=== PATIENT | male | born 1985 | race Caucasian/White ===

== ENCOUNTER → 2023-10-21 | Outpatient (CLI) | payer OTHER, SELFPAY ==
--- NOTE | 2023-10-21 11:37 | NEURO_ITS ---
NCS and/or EMG Patient Report Ordering Doctor: Wu Tang DATE OF SERVICE: 10/21/23 Clinical Summary: This is a 38 year old male presenting with symptoms of numbness and tingling in the medial region of the hand along with pain that radiates between the hand and elbow. This EMG/NCS was performed to evaluate for right ulnar mononeuropathy. Nerve Conduction Studies Summary: The right ulnar-D5 SNAP distal latency was prolonged with reduced amplitude. The right ulnar motor conduction velocity dropped greater than 10 m/s across the elbow. Needle Examination Summary: Needle examination demonstrated a higher proportion of motor unit action po tentials with reduced recruitment, increased amplitude, increased duration, and polyphasia in the right flexor carpi ulnaris muscle. Impression: There is electrodiagnostic evidence of the following - 1) Severe, right ulnar mononeuropathy at the elbow, with secondary motor fiber axonal loss There is no electrodiagnostic evidence of right carpal tunnel syndrome or right cervical radiculopathy. Multi Select Codes Neurology Neurology Interp Codes: 60654-41 Musc test done w/n test comp (interp) (1) and 70915-89 Nrv cndj test 7-8 studies (interp)
== END | disposition home or self-care (01) ==
PROVIDERS: Referring Provider Orthopaedic Surgery; Visit Provider Orthopaedic Surgery
DX: S63.511D Sprain of carpal joint of right wrist, subsequent encounter (principal)
CPT/HCPCS: 95886; 95910